=== PATIENT | male | born 1950 | race Caucasian/White ===

== ENCOUNTER 2017-12-24 17:22 | Inpatient (IN) | payer OTHER ==
[~2017-12-24] VITALS: Ht 185.4 cm; Wt 70.8 kg
[2017-12-24 17:24] VITALS: BP 112/56
[2017-12-24 18:07] LABS: BE -1.5 mmol/L (-2 to +3); HCO3 18.9 mmol/L (22.0-26.0); PCO2 21.4 mmHg (35.0-45.0); pH 7.563 (7.340-7.450)
[2017-12-24 18:10] LABS: PO2 48.1 mmHg (75.0-100.0)
[2017-12-24 18:20] LABS: HEMATOCRIT 33.2 % (42.0-52.0); HEMOGLOBIN 11.3 gm/dL (14.0-18.0); MCH 31.4 pg (26.0-34.0); MCV 92.3 fL (80.0-100.0); MPV 7.7 fl. (7.2-11.1); NUCLEATED RBCS 0 /100WBC; PLATELET COUNT* 342 thou/uL (150-400); RDW-CV 13.2 % (10.5-14.5); WBC 24.2 thou/uL (4.0-11.0)
[2017-12-24 18:26] LABS: ANION GAP 9 mmol/L (7-16); APTT 32.9 Seconds (25.0-31.3); BUN 10 mg/dL (7-18); CALCIUM 8.8 mg/dL (8.5-10.1); CHLORIDE 92 mmol/L (98-107); CO2 24 mmol/L (21-32); CREATININE 1.1 mg/dL (0.6-1.3); GLUCOSE 108 mg/dL (70-99); INR 1.1; PROTIME 11.5 Seconds (9.20-11.50); SODIUM 125 mmol/L (136-145)
[2017-12-24 18:34] LABS: URINE BILIRUBIN NEGATIVE (Negative); URINE BLOOD NEGATIVE (Negative); URINE CLARITY CLEAR; URINE COLOR YELLOW; URINE GLUCOSE-RANDOM NEGATIVE (Negative); URINE KETONES NEGATIVE (Negative); URINE LEUKOCYTES-REFLEX NEGATIVE (Negative); URINE NITRITE-REFLEX NEGATIVE (Negative); URINE PROTEIN NEGATIVE (Negative); URINE SPECIFIC GRAVITY 1.015 (1.005-1.030); URINE UROBILINOGEN 0.2 E.U./dl (0.2-1.0)
[2017-12-24 18:38] LABS: ALKALINE PHOSPHATASE 83 U/L (46-116); MAGNESIUM 1.3 mg/dL (1.8-2.4); NT-PRO BRAIN NAT PEPTIDE 618 pg/mL (<300); SGOT 18 U/L (15-37); SGPT 15 U/L (30-65); TOTAL BILIRUBIN 0.6 mg/dL (<0.1-1.0); TOTAL PROTEIN 6.8 g/dL (6.4-8.2); TROPONIN-I LEVEL <0.06 ng/mL (<0.06)
[2017-12-24 18:45] LABS: ABSOLUTE LYMPHOCYTES 1.9 thou/uL (0.8-5.3); ABSOLUTE MONOCYTES 1.2 thou/uL (0.0-1.2); ABSOLUTE NEUTROPHILS 21.1 thou/uL (1.6-8.1)
[2017-12-24 18:46] LABS: PLATELET ESTIMATE ADEQUATE
[2017-12-24] MEDS ORDERED: PROAIR RESPICL90 MCG INH (19:38)
[2017-12-24] MEDS ORDERED: ALBUTEROL2.5 MG/31 INH (19:39)
[2017-12-24] MEDS ORDERED: ASPIRIN81 M2 PO (19:39)
[2017-12-24] MEDS ORDERED: LIPITOR80 MG PO (19:40)
[2017-12-24] MEDS ORDERED: VITAMIN D1000 UNI1 PO (19:40)
[2017-12-24] MEDS ORDERED: COLACE 100 MG100 MG PO (19:42)
[2017-12-24] MEDS ORDERED: IRON325 PO (19:42)
[2017-12-24] MEDS ORDERED: PROZAC 10 MG CA10 MG PO (19:43)
[2017-12-24] MEDS ORDERED: KETOROLAC30 MG/1 M2 IJ (19:45)
[2017-12-24] MEDS ORDERED: LISINOPRIL20 MG PO (19:46)
[2017-12-24] MEDS ORDERED: SINGULAIR 10 MG10 M1 PO (19:46)
[2017-12-24] MEDS ORDERED: MULTIVITAMINS1 EAC7 PO (19:47)
[2017-12-24] MEDS ORDERED: PROTONIX40 M1 PO (19:48)
[2017-12-24] MEDS ORDERED: OLOPATADINE HC2.5 ML INH (19:48)
[2017-12-24] MEDS ORDERED: LYRICA 50 MG50 MG PO (19:49)
[2017-12-24] MEDS ORDERED: SENNA8.6 MG PO (19:50)
[2017-12-24] MEDS ORDERED: TYLENOL325 MG PO (19:51)
[2017-12-24] MEDS ORDERED: NICOTINE TRANSD21 M1 TOP (19:53)
[2017-12-24 20:29] VITALS: BP 106/51
[2017-12-24 21:40] VITALS: BP 93/46
[2017-12-24] MEDS ORDERED: STIOLTO RESPIMAT4 GM INH (21:55)
[2017-12-24] MEDS ORDERED: GABAPENTIN 100100 MG PO (23:09)
[2017-12-25] VITALS (7 sets, daily range): BP systolic 96–124; BP diastolic 51–78
[2017-12-25 07:46] LABS: CALCIUM 8.3 mg/dL (8.5-10.1); POTASSIUM 3.5 mmol/L (3.5-5.1)
--- NOTE | 2017-12-25 11:03 | EKG ---
[place] [address] ELECTROCARDIOGRAM REPORT Name: MIKETOSIN ROLON Room: [address] ADM IN M.R.#: [id number] Admission: 12/24/17 Attend Phys: Jina Roca MD Discharge: Date of : 48 Report #: [id number] THIS REPORT FOR: //name// [facility] ED Test Date: 2017-12-24 Test Time: 17:27:25 Pat Name: TOSIN MCKEON Department: Room: [facility] Gender: M Mine Supervisor: : 1950 Requested By: Margarita Wayne Order Number: [id number] MD: Darrel Amador Measurements Intervals [place] Rate: 78 P: 64 W[place]: 154 QRS: 34 QRSD: 93 T: 50 QT: 377 QTc: 430 Interpretive Statements Sinus rhythm Atrial premature complexes Low voltage, precordial leads Abnormal R-wave progression, early transition Borderline T wave abnormalities No previous ECG available for comparison Electronically Signed On 12-25-2017 11:02:50 CDT by Darrel Amador [email or web address] <ELECTRONICALLY SIGNED> By: Darrel Amador MD, [facility] 12/25/17 1102 1727 172 Darrel Amador MD, [facility] /EPI
[2017-12-25 12:27] LABS: CALCIUM 8.6 mg/dL (8.5-10.1); POTASSIUM 3.6 mmol/L (3.5-5.1)
[2017-12-26] VITALS: BP 103/49
[2017-12-26 04:00] VITALS: BP 131/63
[2017-12-26 04:47] LABS: HEMATOCRIT 30.9 % (42.0-52.0); HEMOGLOBIN 10.7 gm/dL (14.0-18.0); MCH 32.3 pg (26.0-34.0); MCHC 34.7 g/dL (28.0-37.0); MPV 7.7 fl. (7.2-11.1); RBC 3.33 mil/uL (4.50-6.00); RDW-CV 13.3 % (10.5-14.5); WBC 10.1 thou/uL (4.0-11.0)
[2017-12-26 05:19] LABS: ALBUMIN 2.8 g/dL (3.4-5.0); CALCIUM 8.7 mg/dL (8.5-10.1); CREATININE 0.8 mg/dL (0.6-1.3); POTASSIUM 4.4 mmol/L (3.5-5.1); TOTAL BILIRUBIN 0.2 mg/dL (<0.1-1.0); TOTAL PROTEIN 6.1 g/dL (6.4-8.2)
[2017-12-26 07:44] VITALS: BP 142/62
[2017-12-26] MEDS ORDERED: LEVAQUIN 500 M500 M2 PO (10:07)
[2017-12-26] MEDS ORDERED: PREDNISONE 10 M10 MG PO (10:07)
[2017-12-26] MEDS ORDERED: HYDROCODON-ACE1 EAC7 PO (10:07)
[2017-12-26 10:29] VITALS: BP 142/62
== END 2017-12-26 11:15 | disposition home or self-care (01) | DRG 871 ==
LOC: M.ERS 17:22 → EDBD 17:22 → M.TBA-ER 18:52 → M.2W 18:52
PROVIDERS: Internal Medicine; Personal Emergency Response Attendant; ADMIT Family Medicine
DX: A41.9 Sepsis, unspecified organism (principal); J15.6 Pneumonia due to other Gram-negative bacteria; J96.01 Acute respiratory failure with hypoxia; E87.1 Hypo-osmolality and hyponatremia; J44.0 Chronic obstructive pulmonary disease with (acute) lower respiratory infection; J44.1 Chronic obstructive pulmonary disease with (acute) exacerbation; I10 Essential (primary) hypertension; G62.9 Polyneuropathy, unspecified; N19 Unspecified kidney failure; F17.210 Nicotine dependence, cigarettes, uncomplicated; I73.9 Peripheral vascular disease, unspecified; Z85.118 Personal history of other malignant neoplasm of bronchus and lung; Z88.6 Allergy status to analgesic agent; Z95.820 Peripheral vascular angioplasty status with implants and grafts; Z88.0 Allergy status to penicillin; Z79.82 Long term (current) use of aspirin; Z79.899 Other long term (current) drug therapy; Z28.21 Immunization not carried out because of patient refusal

== ENCOUNTER 2018-06-02 19:40 | Emergency (ER) | payer OTHER ==
[~2018-06-02] VITALS: Ht 188 cm; Wt 68.0 kg
[~2018-06-02 19:40] MED LIST: ALBUTEROL2.5 MG/31 INH; ASPIRIN81 M2 PO; COLACE 100 MG100 MG PO; GABAPENTIN 100100 MG PO; HYDROCODON-ACE1 EAC7 PO; IRON325 PO; KETOROLAC30 MG/1 M2 IJ; LEVAQUIN 500 M500 M2 PO; LIPITOR80 MG PO; LISINOPRIL20 MG PO; LYRICA 50 MG50 MG PO; MULTIVITAMINS1 EAC7 PO; NICOTINE TRANSD21 M1 TOP; OLOPATADINE HC2.5 ML INH; PREDNISONE 10 M10 MG PO; PROAIR RESPICL90 MCG INH; PROTONIX40 M1 PO; PROZAC 10 MG CA10 MG PO; SENNA8.6 MG PO; SINGULAIR 10 MG10 M1 PO; STIOLTO RESPIMAT4 GM INH; TYLENOL325 MG PO; VITAMIN D1000 UNI1 PO
[2018-06-02 20:10] LABS: HEMOGLOBIN 17.7 gm/dL (14.0-18.0); MCH 32.7 pg (26.0-34.0); MCV 96.1 fL (80.0-100.0); MPV 8.6 fl. (7.2-11.1); NUCLEATED RBCS 0 /100WBC; PLATELET COUNT* 273 thou/uL (150-400); RBC 5.41 mil/uL (4.50-6.00); RDW-CV 14.5 % (10.5-14.5); WBC 31.7 thou/uL (4.0-11.0)
[2018-06-02] MEDS ORDERED: PLAVIX 75 MG TA75 M1 (20:13)
[2018-06-02] MEDS ORDERED: NITROGLYCERIN0.4 MG (20:14)
[2018-06-02] MEDS ORDERED: DEXAMETHASONE 44 M1 (20:14)
[2018-06-02] MEDS ORDERED: SPIRIVA18 MCG (20:15)
[2018-06-02 20:16] LABS: PCO2 29.5 mmHg (35.0-45.0); pH 7.422 (7.340-7.450)
[2018-06-02 20:19] LABS: PO2 372.3 mmHg (75.0-100.0)
[2018-06-02 20:20] LABS: INR 1.1; PROTIME 10.8 Seconds (9.20-11.50)
[2018-06-02 20:31] LABS: ANION GAP 13 mmol/L (7-16); BUN 26 mg/dL (7-18); CALCIUM 9.5 mg/dL (8.5-10.1); CHLORIDE 98 mmol/L (98-107); CO2 26 mmol/L (21-32); CREATININE 1.4 mg/dL (0.6-1.3); GLUCOSE 214 mg/dL (70-99); POTASSIUM 4.3 mmol/L (3.5-5.1); SODIUM 137 mmol/L (136-145); TROPONIN-I LEVEL <0.06 ng/mL (<0.06)
[2018-06-02 20:32] LABS: ALBUMIN 3.8 g/dL (3.4-5.0); ALKALINE PHOSPHATASE 95 U/L (46-116); CK-MB MASS 2.1 ng/mL (<0.5-3.6); LIPASE 55 U/L (73-393); MAGNESIUM 2.1 mg/dL (1.8-2.4); NT-PRO BRAIN NAT PEPTIDE 2991 pg/mL (<300); SGOT 33 U/L (15-37); SGPT 64 U/L (30-65); TOTAL BILIRUBIN 0.8 mg/dL (<0.1-1.0); TOTAL PROTEIN 7.8 g/dL (6.4-8.2)
[2018-06-02 20:56] LABS: ABSOLUTE LYMPHOCYTES 3.8 thou/uL (0.8-5.3); ABSOLUTE MONOCYTES 1.6 thou/uL (0.0-1.2); ABSOLUTE NEUTROPHILS 26.3 thou/uL (1.6-8.1)
[2018-06-02 20:58] LABS: PLATELET ESTIMATE ADEQUATE
[2018-06-02 23:15] VITALS: BP 78/51
--- NOTE | 2018-06-03 10:40 | EKG ---
[place] [address] ELECTROCARDIOGRAM REPORT Name: TOSIN MCKEON [facility] Erendira#: [id number] Admission: 06/02/18 Attend Phys: Discharge: 06/02/18 Date of : 48 Report #: [id number] THIS REPORT FOR: //name// [facility] ED Test Date: 2018-06-02 Test Time: 19:46:41 Pat Name: TOSIN MCKEON Department: Room: Gender: M Music Promoter: : 1950 Requested By: Tony Smith Order Number: [id number] MD: Glen Sparks Measurements Intervals [place] Rate: 169 P: 0 [place]: 44 QRS: 41 QRSD: 133 T: QT: 273 QTc: 458 Interpretive Statements supraventricular tachycardia Nonspecific intraventricular conduction delay Compared to ECG 12/24/2017 17:27:25 Sinus rhythm no longer present Electronically Signed On 06-03-2018 10:40:38 CDT by Glen Sparks [email or web address] <ELECTRONICALLY SIGNED> By: Glen Sparks MD, [facility] 06/03/18 1040 1946 45 Glen Sparks MD, [facility] /EPI
== END 2018-06-02 23:15 | disposition short-term general hospital (02) ==
LOC: M.ERS 19:40
PROVIDERS: Family Medicine
DX: J96.90 Respiratory failure, unspecified, unspecified whether with hypoxia or hypercapnia (principal); J44.1 Chronic obstructive pulmonary disease with (acute) exacerbation; I10 Essential (primary) hypertension; G62.9 Polyneuropathy, unspecified; F17.210 Nicotine dependence, cigarettes, uncomplicated; Z88.0 Allergy status to penicillin; Z85.118 Personal history of other malignant neoplasm of bronchus and lung; Z88.5 Allergy status to narcotic agent